=== PATIENT | male | born 1990 | race Caucasian/White ===

== ENCOUNTER 2021-02-07 00:14 | Observation (INO) ==
[2021-02-07] MEDS: Folic Acid 1 MG TABLET PO SCH (02:00)
[2021-02-07] MEDS: Thiamine (B-1) 100 MG TABLET PO SCH (02:00)
[2021-02-07] MEDS ORDERED: modafiniL 100 MG TABLET PO ONE (08:08)
[2021-02-07] MEDS ORDERED: *HR* LORazepam 2 MG/ML VIAL IVP ONE (10:00)
[2021-02-07] MEDS: Nicotine 21 MG PATCH.TD24 TD SCH (10:40)
[2021-02-07] MEDS ORDERED: Ondansetron 4 MG/2 ML VIAL IVP PRN (11:04)
[2021-02-07] MEDS ORDERED: Acetaminophen 325 MG TABLET PO PRN (11:04)
[2021-02-07] MEDS ORDERED: Naloxone 0.4 MG/ML INJ IVP PRN (11:04)
[2021-02-07] MEDS ORDERED: *HR* LORazepam 2 MG/ML VIAL IVP PRN ×3 (11:06)
[2021-02-07] MEDS ORDERED: 0.9 % Sodium Chloride 1,000 ML IV ONE (12:38)
[2021-02-07] MEDS: *HR* Heparin 5,000 UNIT/ML VIAL SQ SCH (18:07)
[2021-02-07 19:48] LABS: Adenovirus Not Detected (Not Detect); Bordetella Pertussis Not Detected (Not Detect); Chlamydophila pneumoniae Not Detected (Not Detect); Coronavirus 229E Not Detected (Not Detect); Coronavirus HKU1 Not Detected (Not Detect); Coronavirus NL63 Not Detected (Not Detect); Coronavirus OC43 Not Detected (Not Detect); Human Metapneumovirus Not Detected (Not Detect); Human Rhinovirus/Enterovirus Not Detected (Not Detect); Influenza A Subtype 2009 H1 Not Detected (Not Detect); Influenza B Not Detected (Not Detect); Mycoplasma pneumoniae Not Detected (Not Detect); Parainfluenza Virus 1 Not Detected (Not Detect); Parainfluenza Virus 2 Not Detected (Not Detect); Parainfluenza Virus 3 Not Detected (Not Detect); Parainfluenza Virus 4 Not Detected (Not Detect); Respiratory Syncytial Virus Not Detected (Not Detect); SARS-CoV-2 Not Detected (Not Detect)
[2021-02-08 05:15] LABS: Basophils % 0.6 %; Eosinophils # 0.1 K/mcL (0.0-0.6); Eosinophils % 1.8 %; Hematocrit 46.4 % (37.5-50.1); Hemoglobin 15.9 g/dL (12.9-16.9); Immature Granulocytes % 0.2 % (0-4); Lymphocytes # 1.8 K/mcL (0.6-4.6); Lymphocytes % 36.7 %; Mean Corpuscular HGB Conc 34.3 g/dL (31.6-35.5); Mean Corpuscular Hemoglobin 31.1 pg (28.0-33.3); Mean Corpuscular Volume 90.8 fL (83.0-100.0); Mean Platelet Volume 9.8 fL (9.4-12.4); Monocytes # 0.5 K/mcL (0.0-1.3); Monocytes % 10.4 %; Neutrophils # 2.5 K/mcL (1.6-8.9); Platelet Count 240 K/mcL (140-400); Red Blood Count 5.11 M/mcL (4.19-5.50); Red Cell Distribution Width 12.3 % (11.5-14.5); Segmented Neutrophils % 50.3 %; White Blood Count 4.9 K/mcL (4.3-11.1)
[2021-02-08] MEDS: *HR* Heparin 5,000 UNIT/ML VIAL SQ SCH (05:24)
[2021-02-08 05:31] LABS: Albumin 4.1 g/dL (3.5-5.7); Bilirubin,Direct 0.1 mg/dL (0.0-0.2); Bilirubin,Indirect 0.6 mg/dL (0.0-1.0); Bilirubin,Total 0.7 mg/dL (0.3-1.0); Globulin 2.1 g/dL (2.4-3.5); Total Protein 6.2 g/dL (6.4-8.9)
[2021-02-08 05:35] LABS: BUN/Creatinine Ratio 16 (6-26); Blood Urea Nitrogen 16 mg/dL (6-20); Calcium 9.1 mg/dL (8.6-10.3); Carbon Dioxide 23 mEq/L (23-29); Chloride 105 mEq/L (98-107); Glucose 95 mg/dL (70-105); Magnesium 1.9 mg/dL (1.6-2.6); Osmolality,Calculated 285 (280-300); Phosphorous 3.5 mg/dL (2.7-4.5); Potassium 4.3 mEq/L (3.5-5.1); Sodium 137 mEq/L (136-145); eGFR For African Americans > 60 (> 60); eGFR For Non-African Americans > 60 (> 60)
[2021-02-08] MEDS: Nicotine 21 MG PATCH.TD24 TD SCH (07:14)
[2021-02-08] MEDS: Thiamine (B-1) 100 MG TABLET PO SCH (07:15)
[2021-02-08] MEDS: Folic Acid 1 MG TABLET PO SCH (07:15)
[2021-02-08] MEDS ORDERED: traZODone 50 MG TABLET PO PRN (10:53)
[2021-02-08] MEDS ORDERED: *HR* LORazepam 0.5 MG TABLET PO PRN (10:53)
[2021-02-08] MEDS ORDERED: Lurasidone 20 MG TABLET PO SCH (11:00)
[2021-02-08] MEDS ORDERED: modafiniL 100 MG TABLET PO SCH (11:00)
[2021-02-08 11:53] VITALS: BP 127/94; PULSE 86; TEMP 97.9; O2SAT 96
== END 2021-02-08 13:34 ==
LOC: CDU 00:14 → EMEROOARM 00:14 → CDU 11:59
PROVIDERS: ADMIT Internal Medicine; ATTEND Internal Medicine